=== PATIENT | male | born 1990 | race African-American/Black ===

== ENCOUNTER 2017-02-18 09:58 | Inpatient (IN) | payer MEDICAID ==
[~2017-02-18 09:58] MED LIST: ETOMIDATE 20 MG INJ; ROCURONIUM 50 MG INJ
[2017-02-18] MEDS: SOD CHLORIDE 0.9% 1,000 ML IV ×2 (10:39→12:00)
[2017-02-18] MEDS: ONDANSETRON 4 MG INJ IV (10:40)
[2017-02-18] MEDS: LORAZEPAM 2 MG INJ IV (10:40)
[2017-02-18 11:19] LABS: ADD UMIC YES; UR AMORPHOUS CRYSTAL FEW /HPF (NONE SEEN); UR ASCORBIC ACID NEGATIVE (NEGATIVE); UR BACTERIA FEW /HPF (NONE SEEN); UR BILIRUBIN (Dip) NEGATIVE (NEGATIVE); UR BLOOD (Dip) 2+ mg/dL (NEGATIVE); UR CLARITY SLIGHTLY CLOUDY (CLEAR); UR COLOR RED (YELLOW); UR GLUCOSE (Dip) NEGATIVE (NEGATIVE); UR KETONES (Dip) TRACE mg/dL (NEGATIVE); UR LEUKOCYTE ESTERASE (Dip) NEGATIVE Leu/ul (NEGATIVE); UR NITRITE (Dip) NEGATIVE (NEGATIVE); UR RBC 2 /HPF (0-5); UR SPECIFIC GRAVITY (Dip) 1.012 (1.003-1.030); UR TOTAL PROTEIN (Dip) 2+ mg/dl (NEGATIVE); UR UROBILINOGEN (Dip) NEGATIVE (NEGATIVE); UR WBC 11 /HPF (0-5)
[2017-02-18 11:30] LABS: ALANINE AMINOTRANSFERASE 228 IU/L (13-69); ALBUMIN 4.8 g/dl (3.3-4.9); ALBUMIN/GLOBULIN RATIO 1.92; ALKALINE PHOSPHATASE 36 IU/L (42-121); BILIRUBIN,INDIRECT 10.8 mg/dl (0-1.1); BILIRUBIN,TOTAL 10.8 mg/dl (0.2-1.3); BLOOD UREA NITROGEN 44 mg/dl (7-20); CALCIUM 7.4 mg/dl (8.4-10.2); CHLORIDE 94 mmol/L (97-110); GLUCOSE 153 mg/dl (70-220); SALICYLATE 1.3 mg/dl (5.0-30.0); SODIUM 137 mmol/L (135-144); TOTAL PROTEIN 7.3 g/dl (6.1-8.1)
[2017-02-18 11:31] LABS: AMMONIA 241 umol/l (9-30)
[2017-02-18 11:50] LABS: BARBITURATES Negative (NEGATIVE); BENZODIAZEPINES Negative (NEGATIVE); CANNABINOIDS Negative (NEGATIVE); COCAINE Negative (NEGATIVE); OPIATES Negative (NEGATIVE)
[2017-02-18 11:53] LABS: ANION GAP 44 (8-16); ASPARTATE AMINO TRANSFERASE 1131 IU/L (15-46); CREATININE 3.91 mg/dl (0.61-1.24)
[2017-02-18 11:54] LABS: ACETAMINOPHEN < 10.0 ug/ml (10.0-30.0)
[2017-02-18 11:55] LABS: CARBON DIOXIDE < 5 mmol/L (21-31); POTASSIUM 6.4 mmol/L (3.5-5.1)
[2017-02-18 11:57] LABS: WHITE BLOOD COUNT 15.3 10^3/ul (4.8-10.8)
[2017-02-18 11:57] LABS: ABNORMAL IP MESSAGE 1; HEMATOCRIT 6.9 % (42.0-52.0); MEAN CORPUSCULAR HEMOGLOBIN 28.6 pg (29.0-33.0); MEAN CORPUSCULAR HGB CONC 26.1 g/dl (32.0-37.0); MEAN CORPUSCULAR VOLUME 109.5 fl (82.0-101.0); MEAN PLATELET VOLUME 10.8 fl (7.4-10.4); NUCLEATED RED BLOOD CELLS% 0.8 /100WBC (0.0-0.0); PLATELET COUNT 135 10^3/UL (140-415); POSITIVE DIFF @See below; RED BLOOD COUNT 0.63 10^6/ul (4.70-6.10); RED CELL DISTRIBUTION WIDTH 21.1 % (11.5-14.5)
[2017-02-18 12:08] LABS: ADD MAN DIFF? YES; HEMOGLOBIN 1.8 g/dl (14.0-18.0)
[2017-02-18 12:39] LABS: AMPHETAMINE/METHAMPHETAMINE POSITIVE (NEGATIVE)
[2017-02-18 12:57] LABS: AADO2 Arterial 118.5 mmHg (7.0-24.0); Allen Test ACCEPTAB; Arterial Base Excess -24.1 mmol/L (-3.0-3); Arterial COHb 1.3 % (0.0-3.0); Arterial Fraction of Oxyhgb 89.3 % (93.0-99.0); Arterial HCO3 5.3 mmol/L (22.0-26.0); Arterial MetHb 9.4 % (0.0-1.5); Arterial Total Hemglobin 2.2 g/dl (12.0-18.0); Arterial pCO2 27.7 mmhg (35-45); MODE VENT - AC; Site Right Radial
[2017-02-18 13:01] LABS: LYMPHOCYTES % 5.9 % (15.0-51.0); MONOCYTES % 6.4 % (0.0-11.0); NEUTROPHILS % 86.6 % (39.0-77.0); NUCLEATED RED BLOOD CELLS # 0.2 10^3/ul (0.0-0.0)
[2017-02-18] MEDS: MIDAZOLAM (DRIP) 50 mg/50 mL 50 ML IV ×3 (13:12→23:13)
[2017-02-18] MEDS: FENTAnyl (DRIP) 1000 mcg/100mL 100 ML IV (13:16)
[2017-02-18] MEDS: THIAMINE 100 MG in SOD CHLORIDE 0.9% 100 ML IVPB ×2 (13:55→14:24)
[2017-02-18] MEDS: PHYTONADIONE 5 MG in DEXTROSE 5% 50 ML IVPB (13:55)
[2017-02-18] MEDS: NA BICARBONATE 8.4% 50 ML SYG IV ×2 (14:06→16:36)
[2017-02-18 14:30] LABS: BAND NEUTROPHILS #M 1.2 10^3/ul (0.0-0.6); BAND NEUTROPHILS % (M) 8 % (0-4); ERYTHROBLAST% (NRBC) (M) 1 % (0-0); LYMPHOCYTES # 1.2 10^3/ul (0.8-2.9); LYMPHOCYTES #M 1.2 10^3/ul (0.8-2.9); LYMPHOCYTES % (M) 8 % (15-51); MONOCYTE # 0.3 10^3/ul (0.3-0.9); MONOCYTE #M 0.3 10^3/ul (0.3-0.9); MONOCYTES % (M) 2 % (0-11); SEGMENTED NEUTROPHILS (M) % 82 % (39-77)
[2017-02-18] MEDS: INSULIN REGULAR, HUMAN 100 UNIT/1 ML 3ML VIAL IV (14:38)
[2017-02-18 14:39] LABS: PATH REVIEW? YES
[2017-02-18 14:42] LABS: SEG NEUT #M 12.7 10^3/ul (1.7-7.5)
[2017-02-18 14:48] LABS: HAAIG REFLEX REFLEX FILED
[2017-02-18 14:58] LABS: RETICULOCYTE COUNT % 17.2 % (0.5-1.5)
[2017-02-18] MEDS ORDERED: DEXTROSE 50% 50 ML SYRINGE IV ×3 (15:00→19:00)
[2017-02-18 15:02] LABS: RETICULOCYTE RBC 0.65
[2017-02-18 15:05] LABS: AADO2 Arterial 133.1 mmHg (7.0-24.0); Arterial Base Excess -15.8 mmol/L (-3.0-3); Arterial Blood Gas Oxygen Sat 99.1 mmHG (95.0-98.0); Arterial COHb 3.2 % (0.0-3.0); Arterial Fraction of Oxyhgb 93.3 % (93.0-99.0); Arterial HCO3 10.5 mmol/L (22.0-26.0); Arterial MetHb 2.7 % (0.0-1.5); Arterial Total Hemglobin 4.4 g/dl (12.0-18.0); Arterial pCO2 26.2 mmhg (35-45); MODE VENT - AC; Site Right Brachial
[2017-02-18 15:23] LABS: INR 3.75; PROTIME 38.3 Sec (11.9-14.9)
[2017-02-18 15:27] LABS: HEPATITIS B SURFACE ANTIGEN NEGATIVE (NEGATIVE)
[2017-02-18 15:45] LABS: HEPATITIS B CORE ANTIBODY NEGATIVE (NEGATIVE); HEPATITIS C VIRAL ANTIBODY NEGATIVE (NEGATIVE)
[2017-02-18 15:47] LABS: LACTIC ACID 15.2 mmol/L (0.5-2.0)
[2017-02-18] MEDS: CEFEPIME 2GM/50 ML (PMX) 50 ML IVPB (16:22)
[2017-02-18 17:16] LABS: IMMEDIATE SPIN CROSSMATCH 1 8
[2017-02-18] MEDS: NA POLYST SULFON 15 GM/60 ML BTL NGT (17:34)
[2017-02-18] MEDS: VANCOMYCIN 1 GM (PMX) 250 ML IVPB (17:34)
[2017-02-18] MEDS: CA CHLORIDE 10% 10 ML SYRINGE IV (17:36)
[2017-02-18] MEDS ORDERED: GLUCOSE GEL 15 GRAM TUBE PO ×2 (19:00)
[2017-02-18] MEDS ORDERED: GLUCOSE GEL 15 GRAM TUBE BUCCAL (19:00)
[2017-02-18] MEDS ORDERED: GLUCAGON 1 MG INJ IM (19:00)
[2017-02-18 19:15] LABS: SODIUM,URINE RANDOM 77 mmol/L (30-90)
[2017-02-18 19:15] LABS: CREATININE,URINE RANDOM 85.48 mg/dl (20-370)
[2017-02-18 19:51] LABS: INR 1.89; PROTIME 22.1 Sec (11.9-14.9); PT RATIO 1.7
[2017-02-18 19:52] LABS: PARTIAL THROMBOPLASTIN TIME 30.1 Sec (25.0-35.0)
[2017-02-18 19:54] LABS: ANION GAP 25 (8-16); BLOOD UREA NITROGEN 56 mg/dl (7-20); CALCIUM 7.4 mg/dl (8.4-10.2); CARBON DIOXIDE 19 mmol/L (21-31); CHLORIDE 99 mmol/L (97-110); GLUCOSE 87 mg/dl (70-220); MAGNESIUM 2.1 mg/dl (1.7-2.5); SODIUM 138 mmol/L (135-144)
[2017-02-18 20:01] LABS: CREATININE 3.38 mg/dl (0.61-1.24)
[2017-02-18] MEDS ORDERED: FUROSEMIDE 20 MG INJ (20:52)
[2017-02-18] MEDS: FUROSEMIDE 20 MG INJ IV (20:56)
[2017-02-18] MEDS: INSULIN ASPART [NOVOLOG] 3 ML PEN SC (21:00)
[2017-02-18] MEDS ORDERED: INSULIN ASPART [NOVOLOG] 3 ML PEN SC (21:00)
[2017-02-18] MEDS: SODIUM BICARBONATE (IV ADD) 150 MEQ in DEXTROSE 5% 1,000 ML IV (21:21)
[2017-02-19 00:36] LABS: ANION GAP 24 (8-16); BLOOD UREA NITROGEN 69 mg/dl (7-20); CALCIUM 7.2 mg/dl (8.4-10.2); CARBON DIOXIDE 24 mmol/L (21-31); CHLORIDE 100 mmol/L (97-110); GLUCOSE 102 mg/dl (70-220); POTASSIUM 3.8 mmol/L (3.5-5.1); SODIUM 144 mmol/L (135-144)
[2017-02-19] MEDS: NA POLYST SULFON 15 GM/60 ML BTL PO (01:00)
[2017-02-19] MEDS: INSULIN ASPART [NOVOLOG] 3 ML PEN SC ×6 (01:00→21:00)
[2017-02-19 01:09] LABS: CREATININE 3.58 mg/dl (0.61-1.24)
[2017-02-19 01:54] LABS: CK INDEX 0.2; CREATINE KINASE 54284 IU/L (23-200)
[2017-02-19] MEDS: ACCU-CHEK XX (02:00)
[2017-02-19 03:02] LABS: ABNORMAL IP MESSAGE 1; HEMATOCRIT 18.4 % (42.0-52.0); MEAN CORPUSCULAR HGB CONC 33.7 g/dl (32.0-37.0); MEAN CORPUSCULAR VOLUME 88.9 fl (82.0-101.0); MEAN PLATELET VOLUME 12.9 fl (7.4-10.4); NUCLEATED RED BLOOD CELLS% 6.3 /100WBC (0.0-0.0); PLATELET COUNT 35 10^3/UL (140-415); POSITIVE DIFF @See below; RED BLOOD COUNT 2.07 10^6/ul (4.70-6.10); RED CELL DISTRIBUTION WIDTH 15.1 % (11.5-14.5)
[2017-02-19 03:02] LABS: WHITE BLOOD COUNT 2.4 10^3/ul (4.8-10.8)
[2017-02-19 03:10] LABS: HEMOGLOBIN 6.2 g/dl (14.0-18.0)
[2017-02-19 03:11] LABS: ADD MAN DIFF? YES
[2017-02-19 04:49] LABS: IMMEDIATE SPIN CROSSMATCH 1
[2017-02-19] MEDS: SOD CHLORIDE 0.9% 250 ML IV* (05:15)
[2017-02-19] MEDS: MIDAZOLAM (DRIP) 50 mg/50 mL 50 ML IV (05:59)
[2017-02-19] MEDS: SODIUM BICARBONATE (IV ADD) 150 MEQ in DEXTROSE 5% 1,000 ML IV (07:41)
[2017-02-19 09:10] LABS: Allen Test ACCEPTAB; Arterial Base Excess 7.1 mmol/L (-3.0-3); Arterial Blood Gas Oxygen Sat 97.6 mmHG (95.0-98.0); Arterial COHb 1.9 % (0.0-3.0); Arterial Fraction of Oxyhgb 94.6 % (93.0-99.0); Arterial HCO3 30.2 mmol/L (22.0-26.0); Arterial MetHb 1.2 % (0.0-1.5); Arterial Total Hemglobin 7.6 g/dl (12.0-18.0); Arterial pCO2 36.2 mmhg (35-45); MODE VENT - AC; Site Right Radial
[2017-02-19] MEDS: FAMOTIDINE 20 MG INJ IV (12:58)
[2017-02-19 15:03] LABS: ADD MAN DIFF? NO
[2017-02-19 15:06] LABS: WHITE BLOOD COUNT 3.7 10^3/ul (4.8-10.8)
[2017-02-19 15:06] LABS: ABNORMAL IP MESSAGE 1; HEMATOCRIT 24.6 % (42.0-52.0); HEMOGLOBIN 8.5 g/dl (14.0-18.0); MEAN CORPUSCULAR HEMOGLOBIN 29.8 pg (29.0-33.0); MEAN CORPUSCULAR HGB CONC 34.6 g/dl (32.0-37.0); MEAN CORPUSCULAR VOLUME 86.3 fl (82.0-101.0); NUCLEATED RED BLOOD CELLS% 1.6 /100WBC (0.0-0.0); POSITIVE DIFF @See below; RED BLOOD COUNT 2.85 10^6/ul (4.70-6.10); RED CELL DISTRIBUTION WIDTH 15.1 % (11.5-14.5)
[2017-02-19 15:20] LABS: INR 2.66; PARTIAL THROMBOPLASTIN TIME 37.9 Sec (25.0-35.0); PT RATIO 2.3
[2017-02-19] MEDS: SOD CHLORIDE 0.9% 1,000 ML IV (15:21)
[2017-02-19 15:24] LABS: ALANINE AMINOTRANSFERASE 413 IU/L (13-69); ALBUMIN 3.6 g/dl (3.3-4.9); ALBUMIN/GLOBULIN RATIO 1.24; ALKALINE PHOSPHATASE 70 IU/L (42-121); ANION GAP 13 (8-16); ASPARTATE AMINO TRANSFERASE 749 IU/L (15-46); BILIRUBIN,INDIRECT 7.7 mg/dl (0-1.1); BILIRUBIN,TOTAL 7.7 mg/dl (0.2-1.3); BLOOD UREA NITROGEN 68 mg/dl (7-20); CALCIUM 6.8 mg/dl (8.4-10.2); CARBON DIOXIDE 34 mmol/L (21-31); CHLORIDE 101 mmol/L (97-110); CREATININE 3.56 mg/dl (0.61-1.24); GLUCOSE 88 mg/dl (70-220); POTASSIUM 3.2 mmol/L (3.5-5.1); SODIUM 145 mmol/L (135-144); TOTAL PROTEIN 6.5 g/dl (6.1-8.1)
[2017-02-19 15:35] LABS: AMMONIA 14 umol/l (9-30)
[2017-02-19 15:45] LABS: PLATELET COUNT 12 10^3/UL (140-415)
[2017-02-19 16:02] LABS: HAPTOGLOBIN <15 mg/dL (43-212)
[2017-02-19 16:25] LABS: PROTIME 29.1 Sec (11.9-14.9)
[2017-02-19 16:59] LABS: ANISOCYTOSIS 1+ (0-0); BAND NEUTROPHILS #M 0.5 10^3/ul (0.0-0.6); BAND NEUTROPHILS % (M) 16 % (0-4); EOSINOPHILS % (M) 6 % (0-7); ERYTHROBLAST% (NRBC) (M) 1 % (0-0); LYMPHOCYTES #M 1.4 10^3/ul (0.8-2.9); LYMPHOCYTES % (M) 40 % (15-51); METAMYELOCYTES %M 1 % (0-0); MICROCYTOSIS 1+ (0-0); PLATELET ESTIMATE DECREASED; POLYCHROMASIA 2+ (0-0); SEG NEUT #M 1.4 10^3/ul (1.7-7.5); SEGMENTED NEUTROPHILS (M) % 37 % (39-77); SMUDGE%M 10 % (0-0)
[2017-02-19 18:26] LABS: RETICULOCYTE COUNT # 0.091 X10^6 (0.020-0.110); RETICULOCYTE COUNT % 3.1 % (0.5-1.5)
[2017-02-19 18:26] LABS: RETICULOCYTE RBC 2.94
[2017-02-19 19:51] LABS: LACTATE DEHYDROGENASE 10575 IU/L (313-618)
[2017-02-19 21:27] LABS: CK INDEX 0.1; CREATINE KINASE 33773 IU/L (23-200)
[2017-02-20] MEDS: FENTAnyl (DRIP) 1000 mcg/100mL 100 ML IV (00:01)
[2017-02-20] MEDS: INSULIN ASPART [NOVOLOG] 3 ML PEN SC ×5 (01:00→17:45)
[2017-02-20] MEDS: ACCU-CHEK XX (02:18)
[2017-02-20] MEDS: SOD CHLORIDE 0.9% 1,000 ML IV (04:36)
[2017-02-20 05:33] LABS: ADD MAN DIFF? NO
[2017-02-20 05:36] LABS: WHITE BLOOD COUNT 4.6 10^3/ul (4.8-10.8)
[2017-02-20 05:36] LABS: ABNORMAL IP MESSAGE 1; BASOPHILS % 0.2 % (0.0-2.0); HEMOGLOBIN 8.5 g/dl (14.0-18.0); LYMPHOCYTES # 0.7 10^3/ul (0.8-2.9); MEAN CORPUSCULAR VOLUME 88.3 fl (82.0-101.0); MEAN PLATELET VOLUME 11.1 fl (7.4-10.4); MONOCYTE # 0.3 10^3/ul (0.3-0.9); MONOCYTES % 6.3 % (0.0-11.0); NEUTROPHIL # 3.6 10^3/ul (1.6-7.5); NEUTROPHILS % 77.8 % (39.0-77.0); NUCLEATED RED BLOOD CELLS # 0.1 10^3/ul (0.0-0.0); NUCLEATED RED BLOOD CELLS% 1.3 /100WBC (0.0-0.0); PLATELET COUNT 44 10^3/UL (140-415); POSITIVE DIFF @See below; RED BLOOD COUNT 2.83 10^6/ul (4.70-6.10); RED CELL DISTRIBUTION WIDTH 15.9 % (11.5-14.5)
[2017-02-20 06:03] LABS: INR 2.36; PROTIME 26.4 Sec (11.9-14.9); PT RATIO 2.1
[2017-02-20 06:04] LABS: PARTIAL THROMBOPLASTIN TIME 37.8 Sec (25.0-35.0)
[2017-02-20 06:22] LABS: ANION GAP 14 (8-16); BLOOD UREA NITROGEN 63 mg/dl (7-20); CALCIUM 7.2 mg/dl (8.4-10.2); CARBON DIOXIDE 33 mmol/L (21-31); CHLORIDE 106 mmol/L (97-110); GLUCOSE 88 mg/dl (70-220); MAGNESIUM 2.2 mg/dl (1.7-2.5); PHOSPHORUS 3.4 mg/dl (2.5-4.9); POTASSIUM 3.1 mmol/L (3.5-5.1); SODIUM 150 mmol/L (135-144)
[2017-02-20 06:23] LABS: ALANINE AMINOTRANSFERASE 910 IU/L (13-69); ALBUMIN 3.4 g/dl (3.3-4.9); ALKALINE PHOSPHATASE 70 IU/L (42-121); ANION GAP 14 (8-16); BILIRUBIN,INDIRECT 5.7 mg/dl (0-1.1); BILIRUBIN,TOTAL 5.7 mg/dl (0.2-1.3); BLOOD UREA NITROGEN 62 mg/dl (7-20); CALCIUM 7.2 mg/dl (8.4-10.2); CARBON DIOXIDE 33 mmol/L (21-31); CHLORIDE 106 mmol/L (97-110); CREATININE 3.33 mg/dl (0.61-1.24); GLUCOSE 86 mg/dl (70-220); POTASSIUM 3.1 mmol/L (3.5-5.1); SODIUM 150 mmol/L (135-144)
[2017-02-20 06:53] LABS: ASPARTATE AMINO TRANSFERASE 1159 IU/L (15-46)
[2017-02-20] MEDS ORDERED: POTASSIUM CHLORIDE 40 MEQ in DEXTROSE 5% 250 ML IVPB (08:00)
[2017-02-20] MEDS: FAMOTIDINE 20 MG INJ IV (08:23)
[2017-02-20 08:30] LABS: OCCULT BLOOD STOOL NEGATIVE (NEGATIVE)
[2017-02-20 08:56] LABS: AADO2 Arterial 42.2 mmHg (7.0-24.0); Allen Test ACCEPTAB; Arterial Base Excess 7.5 mmol/L (-3.0-3); Arterial Blood Gas Oxygen Sat 98.2 mmHG (95.0-98.0); Arterial COHb 0.2 % (0.0-3.0); Arterial Fraction of Oxyhgb 97.3 % (93.0-99.0); Arterial MetHb 0.7 % (0.0-1.5); Arterial Total Hemglobin 9.8 g/dl (12.0-18.0); Arterial pCO2 39.1 mmhg (35-45); MODE VENT - AC; Site Right Radial
[2017-02-20] MEDS: SOD CHLORIDE 0.45% 1,000 ML IV (09:02)
[2017-02-20] MEDS: POTASSIUM CHLORIDE 50 ML IVPB ×4 (09:02→12:02)
[2017-02-20 10:39] LABS: AADO2 Arterial 98.8 mmHg (7.0-24.0); Allen Test ACCEPTAB; Arterial Base Excess 6.3 mmol/L (-3.0-3); Arterial Blood Gas Oxygen Sat 91.1 mmHG (95.0-98.0); Arterial COHb 0.3 % (0.0-3.0); Arterial Fraction of Oxyhgb 90.3 % (93.0-99.0); Arterial HCO3 31.1 mmol/L (22.0-26.0); Arterial MetHb 0.6 % (0.0-1.5); Arterial Total Hemglobin 10.2 g/dl (12.0-18.0); Arterial pCO2 46.3 mmhg (35-45); Blood Gas PS 12; MODE VENT - CPAP; Site Right Radial
[2017-02-20 12:25] LABS: CREATINE KINASE 20434 IU/L (23-200)
[2017-02-20 15:24] LABS: ANION GAP 13 (8-16); BLOOD UREA NITROGEN 55 mg/dl (7-20); CALCIUM 7.4 mg/dl (8.4-10.2); CARBON DIOXIDE 33 mmol/L (21-31); CHLORIDE 109 mmol/L (97-110); CREATININE 3.11 mg/dl (0.61-1.24); GLUCOSE 96 mg/dl (70-220); POTASSIUM 3.7 mmol/L (3.5-5.1); SODIUM 151 mmol/L (135-144)
[2017-02-20] MEDS: DEXTROSE 5% 1,000 ML IV (17:46)
[2017-02-21] MEDS: ACCU-CHEK XX (04:21)
[2017-02-21] MEDS: DEXTROSE 5% 1,000 ML IV ×2 (04:30→13:30)
[2017-02-21 06:06] LABS: AADO2 Arterial 9.7 mmHg (7.0-24.0); Allen Test ACCEPTAB; Arterial Base Excess 4.7 mmol/L (-3.0-3); Arterial Blood Gas Oxygen Sat 98.5 mmHG (95.0-98.0); Arterial COHb 0.5 % (0.0-3.0); Arterial Fraction of Oxyhgb 97.3 % (93.0-99.0); Arterial HCO3 28.5 mmol/L (22.0-26.0); Arterial MetHb 0.7 % (0.0-1.5); Arterial Total Hemglobin 9.5 g/dl (12.0-18.0); Arterial pCO2 39.1 mmhg (35-45); MODE NASAL CANNULA; Site Right Radial
[2017-02-21] MEDS: INSULIN ASPART [NOVOLOG] 3 ML PEN SC ×4 (07:30→21:00)
[2017-02-21] MEDS: FAMOTIDINE 20 MG INJ IV (09:00)
[2017-02-21 09:15] LABS: ABNORMAL IP MESSAGE 1; HEMATOCRIT 27.4 % (42.0-52.0); HEMOGLOBIN 8.8 g/dl (14.0-18.0); MEAN CORPUSCULAR HEMOGLOBIN 29.6 pg (29.0-33.0); MEAN CORPUSCULAR HGB CONC 32.1 g/dl (32.0-37.0); MEAN CORPUSCULAR VOLUME 92.3 fl (82.0-101.0); MEAN PLATELET VOLUME 11.9 fl (7.4-10.4); POSITIVE DIFF @See below; RED BLOOD COUNT 2.97 10^6/ul (4.70-6.10); RED CELL DISTRIBUTION WIDTH 15.8 % (11.5-14.5)
[2017-02-21 09:15] LABS: WHITE BLOOD COUNT 6.1 10^3/ul (4.8-10.8)
[2017-02-21 09:21] LABS: INR 1.67; PT RATIO 1.6
[2017-02-21 09:22] LABS: PARTIAL THROMBOPLASTIN TIME 38.7 Sec (25.0-35.0)
[2017-02-21 09:25] LABS: ADD MAN DIFF? YES; PLATELET COUNT 26 10^3/UL (140-415)
[2017-02-21 09:27] LABS: ANION GAP 13 (8-16); BLOOD UREA NITROGEN 41 mg/dl (7-20); CARBON DIOXIDE 30 mmol/L (21-31); CHLORIDE 108 mmol/L (97-110); CREATININE 2.63 mg/dl (0.61-1.24); GLUCOSE 97 mg/dl (70-220); MAGNESIUM 2.1 mg/dl (1.7-2.5); PHOSPHORUS 3.4 mg/dl (2.5-4.9); POTASSIUM 3.5 mmol/L (3.5-5.1); SODIUM 147 mmol/L (135-144)
[2017-02-21] MEDS: SOD CHLORIDE 0.9% 250 ML IV* (09:39)
[2017-02-21] MEDS ORDERED: VITAMIN A & D 5 GM OINT PACKET TOP (10:09)
[2017-02-21 10:27] LABS: TYPE AND SCREEN 1
[2017-02-21 10:50] LABS: ANISOCYTOSIS 1+ (0-0); BAND NEUTROPHILS #M 0.4 10^3/ul (0.0-0.6); BAND NEUTROPHILS % (M) 8 % (0-4); BASOPHILS % (M) 1 % (0-2); ERYTHROBLAST% (NRBC) (M) 5 % (0-0); HYPOCHROMASIA 1+ (0-0); LYMPHOCYTES #M 1.8 10^3/ul (0.8-2.9); LYMPHOCYTES % (M) 31 % (15-51); MICROCYTOSIS 1+ (0-0); PLATELET ESTIMATE SIG DECREASED; POLYCHROMASIA 1+ (0-0); SEG NEUT #M 3.7 10^3/ul (1.7-7.5); SEGMENTED NEUTROPHILS (M) % 60 % (39-77)
[2017-02-21 11:02] LABS: CREATINE KINASE 4523 IU/L (23-200)
[2017-02-21 12:30] LABS: LYMPHOCYTE - % CD4 (HELPER) 38 % (30-61); LYMPHOCYTE - %CD8 (SUPPRESSOR) 45 % (12-42); LYMPHOCYTE - ABSOLUTE 529 cells/uL (850-3900); LYMPHOCYTE - ABSOLUTE CD4 203 cells/uL (490-1740); LYMPHOCYTE - ABSOLUTE CD8 237 cells/uL (180-1170); LYMPHOCYTE - CD4/CD8 RATIO 0.86 (0.86-5.00)
[2017-02-22] MEDS: ACCU-CHEK XX ×2 (01:17→02:15)
[2017-02-22] MEDS: DEXTROSE 5% 1,000 ML IV (02:15)
[2017-02-22 04:02] LABS: ADD MAN DIFF? NO
[2017-02-22 04:10] LABS: WHITE BLOOD COUNT 5.7 10^3/ul (4.8-10.8)
[2017-02-22 04:10] LABS: ABNORMAL IP MESSAGE 1; BASOPHILS % 0.2 % (0.0-2.0); EOSINOPHILS # 0.1 10^3/ul (0.0-0.5); EOSINOPHILS % 1.1 % (0.0-7.0); HEMATOCRIT 28.6 % (42.0-52.0); HEMOGLOBIN 9.4 g/dl (14.0-18.0); LYMPHOCYTES # 0.9 10^3/ul (0.8-2.9); LYMPHOCYTES % 15.2 % (15.0-51.0); MEAN CORPUSCULAR HEMOGLOBIN 29.7 pg (29.0-33.0); MEAN CORPUSCULAR HGB CONC 32.9 g/dl (32.0-37.0); MEAN CORPUSCULAR VOLUME 90.5 fl (82.0-101.0); MEAN PLATELET VOLUME 12.5 fl (7.4-10.4); MONOCYTE # 0.8 10^3/ul (0.3-0.9); MONOCYTES % 13.1 % (0.0-11.0); NUCLEATED RED BLOOD CELLS # 0.1 10^3/ul (0.0-0.0); NUCLEATED RED BLOOD CELLS% 1.1 /100WBC (0.0-0.0); PLATELET COUNT 46 10^3/UL (140-415); POSITIVE DIFF @See below; RED BLOOD COUNT 3.16 10^6/ul (4.70-6.10); RED CELL DISTRIBUTION WIDTH 15.1 % (11.5-14.5)
[2017-02-22 04:27] LABS: ALANINE AMINOTRANSFERASE 769 IU/L (13-69); ALBUMIN 3.3 g/dl (3.3-4.9); ALKALINE PHOSPHATASE 72 IU/L (42-121); ASPARTATE AMINO TRANSFERASE 218 IU/L (15-46); BILIRUBIN,INDIRECT 2.4 mg/dl (0-1.1); BILIRUBIN,TOTAL 2.4 mg/dl (0.2-1.3); TOTAL PROTEIN 6.2 g/dl (6.1-8.1)
[2017-02-22 04:28] LABS: PHOSPHORUS 3.6 mg/dl (2.5-4.9)
[2017-02-22 04:28] LABS: MAGNESIUM 1.8 mg/dl (1.7-2.5)
[2017-02-22 04:29] LABS: ALANINE AMINOTRANSFERASE 766 IU/L (13-69); ALBUMIN 3.2 g/dl (3.3-4.9); ALBUMIN/GLOBULIN RATIO 1.06; ALKALINE PHOSPHATASE 71 IU/L (42-121); ANION GAP 13 (8-16); ASPARTATE AMINO TRANSFERASE 222 IU/L (15-46); BILIRUBIN,INDIRECT 2.4 mg/dl (0-1.1); BILIRUBIN,TOTAL 2.4 mg/dl (0.2-1.3); BLOOD UREA NITROGEN 31 mg/dl (7-20); CALCIUM 8.3 mg/dl (8.4-10.2); CARBON DIOXIDE 30 mmol/L (21-31); CHLORIDE 105 mmol/L (97-110); CREATININE 2.35 mg/dl (0.61-1.24); GLUCOSE 109 mg/dl (70-220); POTASSIUM 3.4 mmol/L (3.5-5.1); SODIUM 145 mmol/L (135-144); TOTAL PROTEIN 6.2 g/dl (6.1-8.1)
[2017-02-22 05:48] LABS: CREATINE KINASE 2231 IU/L (23-200)
[2017-02-22 05:48] LABS: LACTATE DEHYDROGENASE 3157 IU/L (313-618)
[2017-02-22] MEDS: INSULIN ASPART [NOVOLOG] 3 ML PEN SC ×4 (07:30→20:48)
[2017-02-22] MEDS: FAMOTIDINE 20 MG INJ IV (08:23)
[2017-02-22] MEDS: POTASSIUM CHLORIDE (SR) 20 MEQ TAB PO (09:14)
[2017-02-22 13:13] LABS: PRETRANSFUSION BILIRUBIN 10.1 mg/dl
[2017-02-22 15:56] LABS: CREATININE, RANDOM URINE 103 mg/dL (20-370); MICROALBUMIN/CREATININE RATIO 456 (<30)
[2017-02-22] MEDS: EFAVIRENZ 600 MG TAB PO (19:03)
[2017-02-22] MEDS: EMTRICITABINE 200 MG CAP PO (19:03)
[2017-02-22] MEDS: TENOFOVIR 300 MG TAB PO (20:30)
[2017-02-22 20:49] LABS: ABNORMAL IP MESSAGE 1; HEMATOCRIT 29.3 % (42.0-52.0); HEMOGLOBIN 9.5 g/dl (14.0-18.0); MEAN CORPUSCULAR HEMOGLOBIN 29.4 pg (29.0-33.0); MEAN CORPUSCULAR HGB CONC 32.4 g/dl (32.0-37.0); MEAN CORPUSCULAR VOLUME 90.7 fl (82.0-101.0); MEAN PLATELET VOLUME 11.6 fl (7.4-10.4); NUCLEATED RED BLOOD CELLS% 0.9 /100WBC (0.0-0.0); PLATELET COUNT 37 10^3/UL (140-415); POSITIVE DIFF @See below; RED BLOOD COUNT 3.23 10^6/ul (4.70-6.10); RED CELL DISTRIBUTION WIDTH 14.9 % (11.5-14.5); RETICULOCYTE COUNT # 0.177 X10^6 (0.020-0.110); RETICULOCYTE COUNT % 5.5 % (0.5-1.5); RETICULOCYTE RBC 3.23
[2017-02-22 20:49] LABS: WHITE BLOOD COUNT 4.6 10^3/ul (4.8-10.8)
[2017-02-22 20:51] LABS: BILIRUBIN,INDIRECT 1.5 mg/dl (0-1.1); BILIRUBIN,TOTAL 1.5 mg/dl (0.2-1.3)
[2017-02-22 20:55] LABS: ADD MAN DIFF? YES
[2017-02-22 21:00] LABS: LACTATE DEHYDROGENASE 2875 IU/L (313-618)
[2017-02-22 21:20] LABS: ANISOCYTOSIS 2+ (0-0); BAND NEUTROPHILS #M 0.1 10^3/ul (0.0-0.6); BAND NEUTROPHILS % (M) 3 % (0-4); ERYTHROBLAST% (NRBC) (M) 2 % (0-0); GIANT THROMBO% (M) 2 % (0-0); LYMPHOCYTES #M 1.4 10^3/ul (0.8-2.9); LYMPHOCYTES % (M) 32 % (15-51); METAMYELOCYTES %M 1 % (0-0); MONOCYTE #M 0.5 10^3/ul (0.3-0.9); MONOCYTES % (M) 11 % (0-11); PLATELET ESTIMATE DECREASED; POLYCHROMASIA 2+ (0-0); PROMYELOCYTES % (M) 2 % (0-0); REACTIVE LYMPHOCYTES #M 0.1 10^3/ul (0.0-0.0); REACTIVE LYMPHOCYTES% (M) 4 % (0-0); SEG NEUT #M 2.2 10^3/ul (1.7-7.5); SEGMENTED NEUTROPHILS (M) % 47 % (39-77); SMUDGE%M 6 % (0-0)
[2017-02-23] MEDS: ACCU-CHEK XX (02:00)
[2017-02-23] MEDS: INSULIN ASPART [NOVOLOG] 3 ML PEN SC ×4 (07:30→21:00)
[2017-02-23 08:35] LABS: WHITE BLOOD COUNT 4.4 10^3/ul (4.8-10.8)
[2017-02-23 08:35] LABS: ABNORMAL IP MESSAGE 1; ADD MAN DIFF? NO; BASOPHILS % 0.2 % (0.0-2.0); EOSINOPHILS # 0.1 10^3/ul (0.0-0.5); EOSINOPHILS % 1.1 % (0.0-7.0); HEMATOCRIT 27.5 % (42.0-52.0); LYMPHOCYTES % 23.5 % (15.0-51.0); MEAN CORPUSCULAR HEMOGLOBIN 29.4 pg (29.0-33.0); MEAN CORPUSCULAR HGB CONC 32.7 g/dl (32.0-37.0); MEAN CORPUSCULAR VOLUME 89.9 fl (82.0-101.0); MEAN PLATELET VOLUME 11.8 fl (7.4-10.4); MONOCYTE # 0.7 10^3/ul (0.3-0.9); MONOCYTES % 16.6 % (0.0-11.0); NEUTROPHIL # 2.5 10^3/ul (1.6-7.5); NEUTROPHILS % 57.9 % (39.0-77.0); NUCLEATED RED BLOOD CELLS% 0.9 /100WBC (0.0-0.0); POSITIVE DIFF @See below; RED BLOOD COUNT 3.06 10^6/ul (4.70-6.10); RED CELL DISTRIBUTION WIDTH 15.4 % (11.5-14.5)
[2017-02-23 08:42] LABS: PLATELET COUNT 40 10^3/UL (140-415)
[2017-02-23] MEDS: FOLIC ACID 1 MG TAB PO (08:53)
[2017-02-23] MEDS: FAMOTIDINE 20 MG INJ IV (08:53)
[2017-02-23 09:10] LABS: CREATINE KINASE 886 IU/L (23-200)
[2017-02-23 09:11] LABS: ANION GAP 14 (8-16); BLOOD UREA NITROGEN 28 mg/dl (7-20); CARBON DIOXIDE 28 mmol/L (21-31); CHLORIDE 109 mmol/L (97-110); GLUCOSE 98 mg/dl (70-220); MAGNESIUM 1.8 mg/dl (1.7-2.5); PHOSPHORUS 4.7 mg/dl (2.5-4.9); POTASSIUM 3.7 mmol/L (3.5-5.1); SODIUM 147 mmol/L (135-144)
[2017-02-23] MEDS: TENOFOVIR 300 MG TAB PO (12:12)
[2017-02-23 12:51] LABS: HYPOCHROMASIA 3+ (0-0); MICROCYTOSIS 1+ (0-0); POIKILOCYTOSIS 3+ (0-0); POLYCHROMASIA 2+ (0-0)
[2017-02-23 15:41] LABS: HAPTOGLOBIN <15 mg/dL (43-212)
[2017-02-24] MEDS: ACCU-CHEK XX (02:00)
[2017-02-24 07:58] LABS: ADD MAN DIFF? NO
[2017-02-24 08:05] LABS: WHITE BLOOD COUNT 4.7 10^3/ul (4.8-10.8)
[2017-02-24 08:05] LABS: ABNORMAL IP MESSAGE 1; EOSINOPHILS # 0.1 10^3/ul (0.0-0.5); EOSINOPHILS % 1.1 % (0.0-7.0); HEMATOCRIT 27.2 % (42.0-52.0); HEMOGLOBIN 8.9 g/dl (14.0-18.0); LYMPHOCYTES # 1.1 10^3/ul (0.8-2.9); LYMPHOCYTES % 24.1 % (15.0-51.0); MEAN CORPUSCULAR HEMOGLOBIN 29.9 pg (29.0-33.0); MEAN CORPUSCULAR HGB CONC 32.7 g/dl (32.0-37.0); MEAN CORPUSCULAR VOLUME 91.3 fl (82.0-101.0); MEAN PLATELET VOLUME 12.2 fl (7.4-10.4); MONOCYTE # 0.7 10^3/ul (0.3-0.9); MONOCYTES % 14.8 % (0.0-11.0); NEUTROPHIL # 2.8 10^3/ul (1.6-7.5); NEUTROPHILS % 59.6 % (39.0-77.0); NUCLEATED RED BLOOD CELLS% 0.4 /100WBC (0.0-0.0); PLATELET COUNT 48 10^3/UL (140-415); POSITIVE DIFF @See below; RED BLOOD COUNT 2.98 10^6/ul (4.70-6.10); RED CELL DISTRIBUTION WIDTH 15.5 % (11.5-14.5); RETICULOCYTE COUNT # 0.144 X10^6 (0.020-0.110); RETICULOCYTE COUNT % 4.8 % (0.5-1.5); RETICULOCYTE RBC 2.98
[2017-02-24 08:39] LABS: ALANINE AMINOTRANSFERASE 371 IU/L (13-69); ALBUMIN 3.6 g/dl (3.3-4.9); ALBUMIN/GLOBULIN RATIO 1.16; ALKALINE PHOSPHATASE 68 IU/L (42-121); ANION GAP 16 (8-16); ASPARTATE AMINO TRANSFERASE 74 IU/L (15-46); BLOOD UREA NITROGEN 24 mg/dl (7-20); CALCIUM 8.7 mg/dl (8.4-10.2); CARBON DIOXIDE 26 mmol/L (21-31); CHLORIDE 105 mmol/L (97-110); CREATININE 1.76 mg/dl (0.61-1.24); GLUCOSE 128 mg/dl (70-220); POTASSIUM 3.9 mmol/L (3.5-5.1); SODIUM 143 mmol/L (135-144); TOTAL PROTEIN 6.7 g/dl (6.1-8.1)
[2017-02-24 08:42] LABS: MAGNESIUM 1.5 mg/dl (1.7-2.5)
[2017-02-24] MEDS: INSULIN ASPART [NOVOLOG] 3 ML PEN SC ×4 (08:47→20:50)
[2017-02-24 08:51] LABS: LACTATE DEHYDROGENASE 2642 IU/L (313-618)
[2017-02-24 09:13] LABS: CREATINE KINASE 518 IU/L (23-200)
[2017-02-24] MEDS: SOD CHLORIDE 0.45% 1,000 ML IV (09:31)
[2017-02-24] MEDS: FAMOTIDINE 20 MG INJ IV (09:31)
[2017-02-24] MEDS: FOLIC ACID 1 MG TAB PO (09:32)
[2017-02-24] MEDS: MAGNESIUM SULFATE 2 GM/50 ML 50 ML IVPB (12:56)
[2017-02-24 13:27] LABS: HAPTOGLOBIN <15 mg/dL (43-212)
[2017-02-24 14:11] LABS: LYMPHOCYTE - % CD4 (HELPER) 47 % (30-61); LYMPHOCYTE - %CD8 (SUPPRESSOR) 38 % (12-42); LYMPHOCYTE - ABSOLUTE 952 cells/uL (850-3900); LYMPHOCYTE - ABSOLUTE CD4 443 cells/uL (490-1740); LYMPHOCYTE - ABSOLUTE CD8 359 cells/uL (180-1170); LYMPHOCYTE - CD4/CD8 RATIO 1.23 (0.86-5.00)
[2017-02-24] MEDS: EMTRICITABINE 200 MG CAP PO (17:54)
[2017-02-24] MEDS: EFAVIRENZ 600 MG TAB PO (17:54)
[2017-02-24] MEDS: TENOFOVIR 300 MG TAB PO (17:54)
[2017-02-25] MEDS: ACCU-CHEK XX (01:14)
[2017-02-25] MEDS: SOD CHLORIDE 0.45% 1,000 ML IV (05:57)
[2017-02-25] MEDS: INSULIN ASPART [NOVOLOG] 3 ML PEN SC ×4 (07:30→20:35)
[2017-02-25] MEDS: FOLIC ACID 1 MG TAB PO (08:21)
[2017-02-25] MEDS: FAMOTIDINE 20 MG INJ IV (08:21)
[2017-02-25 11:28] LABS: ANION GAP 16 (8-16); BLOOD UREA NITROGEN 21 mg/dl (7-20); CARBON DIOXIDE 27 mmol/L (21-31); CHLORIDE 106 mmol/L (97-110); CREATININE 1.48 mg/dl (0.61-1.24); GLUCOSE 88 mg/dl (70-220); MAGNESIUM 1.7 mg/dl (1.7-2.5); PHOSPHORUS 4.7 mg/dl (2.5-4.9); SODIUM 145 mmol/L (135-144)
[2017-02-25 12:08] LABS: CREATINE KINASE 333 IU/L (23-200)
[2017-02-25 16:16] LABS: HAPTOGLOBIN <15 mg/dL (43-212)
[2017-02-26] MEDS: ACCU-CHEK XX (01:16)
[2017-02-26] MEDS: SOD CHLORIDE 0.45% 1,000 ML IV ×2 (04:30→21:00)
[2017-02-26] MEDS: INSULIN ASPART [NOVOLOG] 3 ML PEN SC ×4 (09:08→21:00)
[2017-02-26] MEDS: FOLIC ACID 1 MG TAB PO (09:11)
[2017-02-26] MEDS: FAMOTIDINE 20 MG INJ IV (09:13)
[2017-02-26 11:26] LABS: ADD MAN DIFF? NO
[2017-02-26 11:33] LABS: ABNORMAL IP MESSAGE 1; BASOPHILS % 0.2 % (0.0-2.0); EOSINOPHILS % 0.5 % (0.0-7.0); HEMATOCRIT 28.1 % (42.0-52.0); LYMPHOCYTES # 1.2 10^3/ul (0.8-2.9); LYMPHOCYTES % 21.7 % (15.0-51.0); MEAN CORPUSCULAR HEMOGLOBIN 29.9 pg (29.0-33.0); MEAN CORPUSCULAR VOLUME 93.4 fl (82.0-101.0); MEAN PLATELET VOLUME 11.1 fl (7.4-10.4); MONOCYTE # 0.5 10^3/ul (0.3-0.9); MONOCYTES % 8.7 % (0.0-11.0); NEUTROPHIL # 3.8 10^3/ul (1.6-7.5); NEUTROPHILS % 68.5 % (39.0-77.0); PLATELET COUNT 68 10^3/UL (140-415); POSITIVE DIFF @See below; RED BLOOD COUNT 3.01 10^6/ul (4.70-6.10); RED CELL DISTRIBUTION WIDTH 16.8 % (11.5-14.5); RETICULOCYTE COUNT # 0.197 X10^6 (0.020-0.110); RETICULOCYTE COUNT % 6.5 % (0.5-1.5); RETICULOCYTE RBC 3.01
[2017-02-26 11:33] LABS: WHITE BLOOD COUNT 5.6 10^3/ul (4.8-10.8)
[2017-02-26] MEDS ORDERED: VITAMIN A & D 5 GM OINT PACKET TOP (11:40)
[2017-02-26 11:58] LABS: ANION GAP 17 (8-16); BILIRUBIN,INDIRECT 0.5 mg/dl (0-1.1); BILIRUBIN,TOTAL 0.5 mg/dl (0.2-1.3); BLOOD UREA NITROGEN 19 mg/dl (7-20); CALCIUM 8.9 mg/dl (8.4-10.2); CARBON DIOXIDE 27 mmol/L (21-31); CHLORIDE 105 mmol/L (97-110); GLUCOSE 98 mg/dl (70-220); MAGNESIUM 1.4 mg/dl (1.7-2.5); POTASSIUM 4.3 mmol/L (3.5-5.1); SODIUM 145 mmol/L (135-144)
[2017-02-26 12:14] LABS: LACTATE DEHYDROGENASE 2793 IU/L (313-618)
[2017-02-26] MEDS: MAGNESIUM SULFATE 2 GM/50 ML 50 ML IVPB (15:24)
[2017-02-26] MEDS: TENOFOVIR 300 MG TAB PO (17:20)
[2017-02-26] MEDS: EFAVIRENZ 600 MG TAB PO (17:20)
[2017-02-26] MEDS: EMTRICITABINE 200 MG CAP PO (17:20)
[2017-02-27] MEDS: ACCU-CHEK XX ×2 (02:00→23:38)
[2017-02-27] MEDS: SOD CHLORIDE 0.45% 1,000 ML IV ×2 (04:04→17:00)
[2017-02-27] MEDS: INSULIN ASPART [NOVOLOG] 3 ML PEN SC ×4 (07:30→20:46)
[2017-02-27] MEDS: FOLIC ACID 1 MG TAB PO (08:12)
[2017-02-27] MEDS: FAMOTIDINE 20 MG INJ IV (08:12)
[2017-02-27 09:04] LABS: ADD MAN DIFF? NO
[2017-02-27 09:15] LABS: ABNORMAL IP MESSAGE 1; BASOPHILS % 0.2 % (0.0-2.0); EOSINOPHILS % 0.2 % (0.0-7.0); HEMATOCRIT 26.3 % (42.0-52.0); HEMOGLOBIN 8.6 g/dl (14.0-18.0); LYMPHOCYTES # 1.2 10^3/ul (0.8-2.9); LYMPHOCYTES % 20.4 % (15.0-51.0); MEAN CORPUSCULAR HEMOGLOBIN 30.4 pg (29.0-33.0); MEAN CORPUSCULAR HGB CONC 32.7 g/dl (32.0-37.0); MEAN CORPUSCULAR VOLUME 92.9 fl (82.0-101.0); MEAN PLATELET VOLUME 10.3 fl (7.4-10.4); MONOCYTE # 0.5 10^3/ul (0.3-0.9); MONOCYTES % 7.8 % (0.0-11.0); NEUTROPHIL # 4.3 10^3/ul (1.6-7.5); NEUTROPHILS % 70.9 % (39.0-77.0); PLATELET COUNT 70 10^3/UL (140-415); POSITIVE DIFF @See below; RED BLOOD COUNT 2.83 10^6/ul (4.70-6.10); RED CELL DISTRIBUTION WIDTH 17.2 % (11.5-14.5)
[2017-02-27 09:44] LABS: ANION GAP 14 (8-16); BLOOD UREA NITROGEN 18 mg/dl (7-20); CALCIUM 8.7 mg/dl (8.4-10.2); CARBON DIOXIDE 28 mmol/L (21-31); CHLORIDE 105 mmol/L (97-110); CREATININE 1.16 mg/dl (0.61-1.24); GLUCOSE 94 mg/dl (70-220); MAGNESIUM 1.6 mg/dl (1.7-2.5); PHOSPHORUS 4.2 mg/dl (2.5-4.9); POTASSIUM 4.2 mmol/L (3.5-5.1); SODIUM 143 mmol/L (135-144)
[2017-02-27 09:53] LABS: BILIRUBIN,INDIRECT 0.4 mg/dl (0-1.1); BILIRUBIN,TOTAL 0.4 mg/dl (0.2-1.3)
[2017-02-27 10:00] LABS: LACTATE DEHYDROGENASE 3292 IU/L (313-618)
[2017-02-27 11:05] LABS: ANISOCYTOSIS 1+ (0-0); BAND NEUTROPHILS #M 0.4 10^3/ul (0.0-0.6); BAND NEUTROPHILS % (M) 8 % (0-4); GIANT THROMBO% (M) 1 % (0-0); LYMPHOCYTES #M 1.2 10^3/ul (0.8-2.9); LYMPHOCYTES % (M) 20 % (15-51); MONOCYTES % (M) 1 % (0-11); PLATELET ESTIMATE DECREASED; SEG NEUT #M 4.3 10^3/ul (1.7-7.5); SEGMENTED NEUTROPHILS (M) % 71 % (39-77)
[2017-02-27] MEDS: MAGNESIUM SULFATE 2 GM/50 ML 50 ML IVPB (12:19)
[2017-02-28] MEDS: SOD CHLORIDE 0.45% 1,000 ML IV (01:48)
[2017-02-28 06:26] LABS: ADD MAN DIFF? NO
[2017-02-28 06:30] LABS: WHITE BLOOD COUNT 7.4 10^3/ul (4.8-10.8)
[2017-02-28 06:30] LABS: ABNORMAL IP MESSAGE 1; BASOPHILS % 0.1 % (0.0-2.0); EOSINOPHILS % 0.4 % (0.0-7.0); LYMPHOCYTES # 1.4 10^3/ul (0.8-2.9); LYMPHOCYTES % 18.6 % (15.0-51.0); MEAN CORPUSCULAR HGB CONC 32.1 g/dl (32.0-37.0); MEAN CORPUSCULAR VOLUME 93.3 fl (82.0-101.0); MEAN PLATELET VOLUME 10.6 fl (7.4-10.4); MONOCYTE # 0.6 10^3/ul (0.3-0.9); NEUTROPHIL # 5.3 10^3/ul (1.6-7.5); NEUTROPHILS % 72.6 % (39.0-77.0); PLATELET COUNT 82 10^3/UL (140-415); POSITIVE DIFF @See below; RED CELL DISTRIBUTION WIDTH 16.9 % (11.5-14.5)
[2017-02-28] MEDS: INSULIN ASPART [NOVOLOG] 3 ML PEN SC ×4 (07:30→20:47)
[2017-02-28 07:33] LABS: ANION GAP 14 (8-16); BLOOD UREA NITROGEN 14 mg/dl (7-20); CALCIUM 8.8 mg/dl (8.4-10.2); CARBON DIOXIDE 28 mmol/L (21-31); CHLORIDE 103 mmol/L (97-110); CREATININE 1.03 mg/dl (0.61-1.24); GLUCOSE 97 mg/dl (70-220); MAGNESIUM 1.3 mg/dl (1.7-2.5); PHOSPHORUS 4.1 mg/dl (2.5-4.9); POTASSIUM 3.8 mmol/L (3.5-5.1); SODIUM 141 mmol/L (135-144)
[2017-02-28] MEDS: FAMOTIDINE 20 MG INJ IV (08:17)
[2017-02-28] MEDS: FOLIC ACID 1 MG TAB PO (08:17)
[2017-02-28] MEDS: MAGNESIUM SULFATE 2 GM/50 ML 50 ML IVPB (10:40)
[2017-02-28] MEDS: SOD CHLORIDE 0.9% 100 ML ×2 (15:30→19:51)
[2017-02-28] MEDS: IOHEXOL 100 ML (15:30)
[2017-02-28] MEDS: NITROGLYCERIN AEROSOL (4.9 GM) (15:56)
[2017-02-28] MEDS: EMTRICITABINE 200 MG CAP PO (17:11)
[2017-02-28] MEDS: EFAVIRENZ 600 MG TAB PO (17:11)
[2017-02-28] MEDS: TENOFOVIR 300 MG TAB PO (17:13)
[2017-02-28] MEDS: ONDANSETRON 4 MG INJ IV (18:56)
[2017-02-28] MEDS: IOHEXOL 350MG/ML 50 ML BTL (19:50)
[2017-03-01] MEDS: ACCU-CHEK XX (01:51)
[2017-03-01] MEDS: ONDANSETRON 4 MG INJ IV ×2 (04:47→20:25)
[2017-03-01] MEDS: FAMOTIDINE 20 MG INJ IV (08:32)
[2017-03-01] MEDS: DICYCLOMINE 10 MG CAP PO ×2 (08:32→16:49)
[2017-03-01] MEDS: FOLIC ACID 1 MG TAB PO (08:33)
[2017-03-01] MEDS: INSULIN ASPART [NOVOLOG] 3 ML PEN SC (08:34)
[2017-03-01 08:48] LABS: ADD MAN DIFF? NO
[2017-03-01 08:59] LABS: ABNORMAL IP MESSAGE 1; BASOPHILS % 0.1 % (0.0-2.0); EOSINOPHILS % 0.1 % (0.0-7.0); HEMATOCRIT 29.3 % (42.0-52.0); HEMOGLOBIN 9.5 g/dl (14.0-18.0); LYMPHOCYTES # 1.3 10^3/ul (0.8-2.9); LYMPHOCYTES % 12.8 % (15.0-51.0); MEAN CORPUSCULAR HEMOGLOBIN 30.4 pg (29.0-33.0); MEAN CORPUSCULAR HGB CONC 32.4 g/dl (32.0-37.0); MEAN CORPUSCULAR VOLUME 93.6 fl (82.0-101.0); MONOCYTE # 0.7 10^3/ul (0.3-0.9); MONOCYTES % 6.5 % (0.0-11.0); NEUTROPHILS % 80.1 % (39.0-77.0); PLATELET COUNT 98 10^3/UL (140-415); POSITIVE DIFF @See below; RED BLOOD COUNT 3.13 10^6/ul (4.70-6.10); RED CELL DISTRIBUTION WIDTH 17.3 % (11.5-14.5)
[2017-03-01] MEDS: morphine 2 MG INJ IV (23:32)
[2017-03-02] MEDS: morphine 2 MG INJ IV ×3 (08:33→16:40)
[2017-03-02] MEDS: FAMOTIDINE 20 MG INJ IV (08:33)
[2017-03-02] MEDS: FOLIC ACID 1 MG TAB PO (08:34)
[2017-03-02 08:54] LABS: WHITE BLOOD COUNT 10.3 10^3/ul (4.8-10.8)
[2017-03-02 08:54] LABS: ADD MAN DIFF? NO; BASOPHILS % 0.1 % (0.0-2.0); EOSINOPHILS % 0.1 % (0.0-7.0); HEMATOCRIT 30.3 % (42.0-52.0); LYMPHOCYTES # 1.2 10^3/ul (0.8-2.9); LYMPHOCYTES % 11.9 % (15.0-51.0); MEAN CORPUSCULAR HEMOGLOBIN 30.3 pg (29.0-33.0); MEAN CORPUSCULAR VOLUME 91.8 fl (82.0-101.0); MEAN PLATELET VOLUME 11.1 fl (7.4-10.4); MONOCYTE # 0.7 10^3/ul (0.3-0.9); MONOCYTES % 6.9 % (0.0-11.0); NEUTROPHIL # 8.3 10^3/ul (1.6-7.5); NEUTROPHILS % 80.5 % (39.0-77.0); PLATELET COUNT 102 10^3/UL (140-415)
[2017-03-02] MEDS: ONDANSETRON 4 MG INJ IV ×3 (09:27→20:19)
[2017-03-02 09:29] LABS: ALANINE AMINOTRANSFERASE 100 IU/L (13-69); ALBUMIN 4.1 g/dl (3.3-4.9); ALBUMIN/GLOBULIN RATIO 1.07; ALKALINE PHOSPHATASE 101 IU/L (42-121); ANION GAP 17 (8-16); ASPARTATE AMINO TRANSFERASE 48 IU/L (15-46); BILIRUBIN,INDIRECT 0.5 mg/dl (0-1.1); BILIRUBIN,TOTAL 0.5 mg/dl (0.2-1.3); BLOOD UREA NITROGEN 16 mg/dl (7-20); CALCIUM 9.2 mg/dl (8.4-10.2); CARBON DIOXIDE 27 mmol/L (21-31); CHLORIDE 102 mmol/L (97-110); CREATININE 0.95 mg/dl (0.61-1.24); GLUCOSE 95 mg/dl (70-220); MAGNESIUM 1.3 mg/dl (1.7-2.5); POTASSIUM 4.1 mmol/L (3.5-5.1); SODIUM 142 mmol/L (135-144); TOTAL PROTEIN 7.9 g/dl (6.1-8.1)
[2017-03-02] MEDS: MAGNESIUM SULFATE 4 GM/100 ML 100 ML IVPB (14:16)
[2017-03-02] MEDS: DEXTROSE 5%-0.45% NACL 1,000 ML IV (14:16)
[2017-03-02 16:42] LABS: INR 1.26; PT RATIO 1.3
[2017-03-02 16:43] LABS: PARTIAL THROMBOPLASTIN TIME 34.3 Sec (25.0-35.0)
[2017-03-02 16:46] LABS: LIPASE 161 U/L (23-300)
[2017-03-02 17:27] LABS: D-DIMER > 10000.00 ng/ml (<460)
[2017-03-02] MEDS: TENOFOVIR 300 MG TAB PO (19:05)
[2017-03-02] MEDS: EFAVIRENZ 600 MG TAB PO (19:05)
[2017-03-02] MEDS: EMTRICITABINE 200 MG CAP PO (19:05)
[2017-03-02] MEDS ORDERED: LIDOCAINE/MYLANTA 40 ML BTL PO (20:00)
[2017-03-02] MEDS ORDERED: METOCLOPRAMIDE 10 MG INJ IV (21:00)
[2017-03-02] MEDS: PANTOPRAZOLE 40 MG INJ IV (21:22)
[2017-03-02] MEDS: LIDOCAINE/MYLANTA 40 ML BTL PO (21:30)
[2017-03-03] MEDS: DEXTROSE 5%-0.45% NACL 1,000 ML IV ×2 (00:50→09:29)
[2017-03-03] MEDS: PANTOPRAZOLE 40 MG INJ IV ×2 (06:00→17:18)
[2017-03-03] MEDS ORDERED: PANTOPRAZOLE 40 MG INJ IV (06:00)
[2017-03-03] MEDS: FOLIC ACID 1 MG TAB PO (09:00)
[2017-03-03 09:11] LABS: ADD MAN DIFF? NO
[2017-03-03 09:17] LABS: WHITE BLOOD COUNT 5.9 10^3/ul (4.8-10.8)
[2017-03-03 09:17] LABS: ABNORMAL IP MESSAGE 1; BASOPHILS % 0.2 % (0.0-2.0); EOSINOPHILS % 0.2 % (0.0-7.0); HEMATOCRIT 28.7 % (42.0-52.0); HEMOGLOBIN 9.4 g/dl (14.0-18.0); LYMPHOCYTES # 1.3 10^3/ul (0.8-2.9); LYMPHOCYTES % 21.5 % (15.0-51.0); MEAN CORPUSCULAR HEMOGLOBIN 29.9 pg (29.0-33.0); MEAN CORPUSCULAR HGB CONC 32.8 g/dl (32.0-37.0); MEAN CORPUSCULAR VOLUME 91.4 fl (82.0-101.0); MEAN PLATELET VOLUME 10.9 fl (7.4-10.4); MONOCYTE # 0.6 10^3/ul (0.3-0.9); MONOCYTES % 10.8 % (0.0-11.0); NEUTROPHIL # 3.9 10^3/ul (1.6-7.5); PLATELET COUNT 96 10^3/UL (140-415); POSITIVE DIFF @See below; RED BLOOD COUNT 3.14 10^6/ul (4.70-6.10); RED CELL DISTRIBUTION WIDTH 16.5 % (11.5-14.5)
[2017-03-03 10:20] LABS: ALANINE AMINOTRANSFERASE 91 IU/L (13-69); ALBUMIN 3.7 g/dl (3.3-4.9); ALBUMIN/GLOBULIN RATIO 1.05; ALKALINE PHOSPHATASE 144 IU/L (42-121); ANION GAP 14 (8-16); ASPARTATE AMINO TRANSFERASE 120 IU/L (15-46); BILIRUBIN,INDIRECT 0.7 mg/dl (0-1.1); BILIRUBIN,TOTAL 0.7 mg/dl (0.2-1.3); BLOOD UREA NITROGEN 18 mg/dl (7-20); CALCIUM 8.4 mg/dl (8.4-10.2); CARBON DIOXIDE 29 mmol/L (21-31); CHLORIDE 102 mmol/L (97-110); CREATININE 0.96 mg/dl (0.61-1.24); GLUCOSE 90 mg/dl (70-220); MAGNESIUM 1.8 mg/dl (1.7-2.5); POTASSIUM 4.3 mmol/L (3.5-5.1); SODIUM 141 mmol/L (135-144); TOTAL PROTEIN 7.2 g/dl (6.1-8.1)
[2017-03-03] MEDS: NYSTATIN SUSP 5 ML CUP PO ×2 (17:18→20:58)
[2017-03-03] MEDS: FLUCONAZOLE 100 MG TAB PO (17:18)
[2017-03-04] MEDS: DEXTROSE 5%-0.45% NACL 1,000 ML IV ×2 (03:30→12:25)
[2017-03-04] MEDS: PANTOPRAZOLE 40 MG INJ IV ×2 (05:33→17:24)
[2017-03-04 08:10] LABS: ALANINE AMINOTRANSFERASE 75 IU/L (13-69); ALBUMIN 3.2 g/dl (3.3-4.9); ALBUMIN/GLOBULIN RATIO 0.96; ALKALINE PHOSPHATASE 102 IU/L (42-121); ANION GAP 12 (8-16); ASPARTATE AMINO TRANSFERASE 62 IU/L (15-46); BILIRUBIN,INDIRECT 0.4 mg/dl (0-1.1); BILIRUBIN,TOTAL 0.4 mg/dl (0.2-1.3); BLOOD UREA NITROGEN 11 mg/dl (7-20); CALCIUM 8.1 mg/dl (8.4-10.2); CARBON DIOXIDE 27 mmol/L (21-31); CHLORIDE 103 mmol/L (97-110); CREATININE 0.72 mg/dl (0.61-1.24); GLUCOSE 95 mg/dl (70-220); MAGNESIUM 1.3 mg/dl (1.7-2.5); POTASSIUM 3.6 mmol/L (3.5-5.1); SODIUM 138 mmol/L (135-144); TOTAL PROTEIN 6.5 g/dl (6.1-8.1)
[2017-03-04] MEDS: POTASSIUM CHLORIDE (SR) 20 MEQ TAB PO (09:11)
[2017-03-04] MEDS: FOLIC ACID 1 MG TAB PO (09:11)
[2017-03-04] MEDS: FLUCONAZOLE 100 MG TAB PO (09:11)
[2017-03-04] MEDS: NYSTATIN SUSP 5 ML CUP PO ×3 (09:12→17:24)
[2017-03-04] MEDS: MAGNESIUM OXIDE 400 MG TAB PO (12:22)
[2017-03-04] MEDS: EFAVIRENZ 600 MG TAB PO (17:24)
[2017-03-04] MEDS: TENOFOVIR 300 MG TAB PO (17:24)
[2017-03-04] MEDS: EMTRICITABINE 200 MG CAP PO (17:24)
== END 2017-03-04 18:37 | disposition home or self-care (01) | DRG 974 ==
LOC: E/R 09:58 → MS4 02-21 04:09 → ICU 15:09
PROC: 5A1945Z Respiratory Ventilation, 24-96 Consecutive Hours (ICD-10-PCS; principal; 2017-02-18)
PROC: 0BH17EZ Insertion of Endotracheal Airway into Trachea, Via Natural or Artificial Opening (ICD-10-PCS; 2017-02-18)
PROC: 30233K1 Transfusion of Nonautologous Frozen Plasma into Peripheral Vein, Percutaneous Approach (ICD-10-PCS; 2017-02-18)
PROC: 30233N1 Transfusion of Nonautologous Red Blood Cells into Peripheral Vein, Percutaneous Approach (ICD-10-PCS; 2017-02-18)
PROC: 30233R1 Transfusion of Nonautologous Platelets into Peripheral Vein, Percutaneous Approach (ICD-10-PCS; 2017-02-18)
DX: B20 Human immunodeficiency virus [HIV] disease (principal); A41.9 Sepsis, unspecified organism; J96.00 Acute respiratory failure, unspecified whether with hypoxia or hypercapnia; R65.20 Severe sepsis without septic shock; I21.A1 Myocardial infarction type 2; K72.00 Acute and subacute hepatic failure without coma; N17.0 Acute kidney failure with tubular necrosis; G92 Toxic encephalopathy; E87.2 Acidosis; M62.82 Rhabdomyolysis; E87.0 Hyperosmolality and hypernatremia; D61.818 Other pancytopenia; R17 Unspecified jaundice; B37.0 Candidal stomatitis; D59.5 Paroxysmal nocturnal hemoglobinuria [Marchiafava-Micheli]; E87.5 Hyperkalemia; F15.10 Other stimulant abuse, uncomplicated; F10.10 Alcohol abuse, uncomplicated; R11.2 Nausea with vomiting, unspecified
CPT/HCPCS: 31500; 36415; 36430; 36600; 70450; 71010; 71045; 74018; 75574; 76700; 76705; 76775; 80048; 80053; 80076; 80306; 80307; 81001; 81003; 82043; 82140; 82247; 82248; 82270; 82550; 82553; 82803; 82962; 83010; 83605; 83615; 83690; 83735; 84100; 84155; 84300; 84484; 85025; 85045; 85378; 85384; 85610; 85730; 86078; 86360; 86644; 86704; 86709; 86803; 86850; 86900; 86901; 86920; 87040; 87086; 87340; 87536; 93005; 93306; 94002; 94003; 94770; 96361; 96374; 96375; 96376; 97116; 97163; 99291-25; J1940

== ENCOUNTER 2017-03-10 10:09 | Emergency (ER) | payer MEDICAID ==
[2017-03-10 12:26] LABS: ADD MAN DIFF? NO
[2017-03-10 12:28] LABS: WHITE BLOOD COUNT 3.8 10^3/ul (4.8-10.8)
[2017-03-10 12:28] LABS: BASOPHILS % 0.5 % (0.0-2.0); HEMATOCRIT 34.7 % (42.0-52.0); HEMOGLOBIN 11.2 g/dl (14.0-18.0); LYMPHOCYTES % 27.1 % (15.0-51.0); MEAN CORPUSCULAR HEMOGLOBIN 29.7 pg (29.0-33.0); MEAN CORPUSCULAR HGB CONC 32.3 g/dl (32.0-37.0); MEAN PLATELET VOLUME 8.9 fl (7.4-10.4); MONOCYTE # 0.4 10^3/ul (0.3-0.9); MONOCYTES % 10.6 % (0.0-11.0); NEUTROPHIL # 2.3 10^3/ul (1.6-7.5); NEUTROPHILS % 61.5 % (39.0-77.0); PLATELET COUNT 107 10^3/UL (140-415); RED BLOOD COUNT 3.77 10^6/ul (4.70-6.10); RED CELL DISTRIBUTION WIDTH 16.4 % (11.5-14.5)
[2017-03-10 12:52] LABS: ANION GAP 17 (8-16); BLOOD UREA NITROGEN 14 mg/dl (7-20); CALCIUM 9.5 mg/dl (8.4-10.2); CARBON DIOXIDE 26 mmol/L (21-31); CHLORIDE 102 mmol/L (97-110); CREATININE 0.83 mg/dl (0.61-1.24); GLUCOSE 90 mg/dl (70-220); POTASSIUM 4.1 mmol/L (3.5-5.1); SODIUM 141 mmol/L (135-144)
[2017-03-10] MEDS: METOCLOPRAMIDE 10 MG INJ IV (12:57)
[2017-03-10] MEDS: DIPHENHYDRAMINE 50 MG INJ IV (12:57)
[2017-03-10] MEDS: SOD CHLORIDE 0.9% 1,000 ML IV (12:57)
[2017-03-10 13:14] LABS: TROPONIN-I < 0.012 ng/ml (0.00-0.12)
[2017-03-10] MEDS: SOD CHLORIDE 0.9% 100 ML (14:24)
[2017-03-10] MEDS: IOHEXOL 300MG/ML 150 ML BTL (14:25)
[2017-03-10] MEDS: morphine 4 MG/ML VIAL IV (14:30)
[2017-03-10] MEDS: HYDROmorphONE 1 MG/ML SYG IV (15:18)
[2017-03-10] MEDS: ONDANSETRON 4 MG INJ IV (15:18)
[2017-03-10 15:40] LABS: CSF MN% 66.6 %; CSF PMN% 33.4 %; CSF RBC 0 /uL (0-0); CSF WBC 3 /cmm (0-10)
[2017-03-10 15:42] LABS: CSF MN% 33.3 %; CSF PMN% 66.7 %; CSF RBC 1000 /uL (0-0); CSF WBC 3 /cmm (0-10)
[2017-03-10 15:53] LABS: TOTAL PROTEIN,CSF 53 mg/dl (12-60)
[2017-03-10 15:53] LABS: GLUCOSE,CSF 44 mg/dl (50-80)
[2017-03-10 16:39] LABS: CSF COLOR PINKISH
[2017-03-10 16:40] LABS: CSF CLARITY HAZY; CSF VOLUME 5.3 ml; CSF#TUBE COUNT TUBE#1; CSF#TUBES REC'D 4
[2017-03-10 16:43] LABS: CSF COLOR COLORLESS
[2017-03-10 16:44] LABS: CSF CLARITY CLEAR; CSF VOLUME 5.3 ml; CSF#TUBE COUNT TUBE#4; CSF#TUBES REC'D 4
[2017-03-10] MEDS: HYDROCODONE/APAP (10/325) TAB PO (17:55)
== END 2017-03-10 18:02 | disposition home or self-care (01) ==
LOC: E/R 10:09
DX: R51 Headache (principal); R11.2 Nausea with vomiting, unspecified; D61.818 Other pancytopenia; R42 Dizziness and giddiness; Z21 Asymptomatic human immunodeficiency virus [HIV] infection status
CPT/HCPCS: 62270; 70470; 71045; 80048; 82945; 84157; 84484; 85025; 86850; 86900; 86901; 87070; 87102; 87210; 87529; 89051; 93005; 96374; 96375; 99285-25

== ENCOUNTER 2017-03-14 22:58 | Emergency (ER) | payer MEDICAID, OTHER ==
[2017-03-15] MEDS: ONDANSETRON 4 MG INJ IV (01:44)
[2017-03-15] MEDS: LORAZEPAM 2 MG INJ IV (01:44)
[2017-03-15] MEDS: SOD CHLORIDE 0.9% 1,000 ML IV (01:44)
[2017-03-15 01:51] LABS: ADD MAN DIFF? NO
[2017-03-15 01:57] LABS: WHITE BLOOD COUNT 6.2 10^3/ul (4.8-10.8)
[2017-03-15 01:57] LABS: ABNORMAL IP MESSAGE 1; BASOPHILS % 0.2 % (0.0-2.0); HEMATOCRIT 37.1 % (42.0-52.0); HEMOGLOBIN 12.2 g/dl (14.0-18.0); LYMPHOCYTES # 1.1 10^3/ul (0.8-2.9); LYMPHOCYTES % 17.7 % (15.0-51.0); MEAN CORPUSCULAR HGB CONC 32.9 g/dl (32.0-37.0); MEAN CORPUSCULAR VOLUME 91.4 fl (82.0-101.0); MONOCYTE # 0.4 10^3/ul (0.3-0.9); MONOCYTES % 6.1 % (0.0-11.0); NEUTROPHIL # 4.7 10^3/ul (1.6-7.5); NEUTROPHILS % 75.7 % (39.0-77.0); PLATELET COUNT 157 10^3/UL (140-415); POSITIVE DIFF @See below; RED BLOOD COUNT 4.06 10^6/ul (4.70-6.10); RED CELL DISTRIBUTION WIDTH 17.2 % (11.5-14.5)
[2017-03-15 02:01] LABS: MEAN PLATELET VOLUME 13.1 fl (7.4-10.4)
[2017-03-15 02:20] LABS: ALANINE AMINOTRANSFERASE 36 IU/L (13-69); ALBUMIN 5.4 g/dl (3.3-4.9); ALBUMIN/GLOBULIN RATIO 1.08; ALKALINE PHOSPHATASE 104 IU/L (42-121); ANION GAP 20 (8-16); ASPARTATE AMINO TRANSFERASE 71 IU/L (15-46); BILIRUBIN,INDIRECT 0.8 mg/dl (0-1.1); BILIRUBIN,TOTAL 0.8 mg/dl (0.2-1.3); BLOOD UREA NITROGEN 11 mg/dl (7-20); CALCIUM 10.4 mg/dl (8.4-10.2); CARBON DIOXIDE 28 mmol/L (21-31); CHLORIDE 99 mmol/L (97-110); CREATININE 0.79 mg/dl (0.61-1.24); GLUCOSE 96 mg/dl (70-220); POTASSIUM 4.4 mmol/L (3.5-5.1); SODIUM 143 mmol/L (135-144); TOTAL PROTEIN 10.4 g/dl (6.1-8.1)
== END 2017-03-15 04:08 | disposition home or self-care (01) ==
LOC: FTE 22:58
DX: R51 Headache (principal); R11.10 Vomiting, unspecified
CPT/HCPCS: 36415; 70450; 80053; 85025; 96374; 96375; 99285-25